=== PATIENT | female | born 1975 | race Caucasian/White ===

== ENCOUNTER 2021-08-20 18:31 | Emergency (ER) | payer SELFPAY ==
[~2021-08-20] VITALS: Ht 165.1 cm; Wt 73.0 kg
[2021-08-20] MEDS ORDERED: ONDANSETRON HCL 4MG/2ML INJ IV STA (19:10)
[2021-08-20] MEDS ORDERED: KETOROLAC 30MG/ML VIAL IV STA (19:10)
[2021-08-20] MEDS ORDERED: ACETAMINOPHEN 325MG TABLET PO STA (19:10)
[2021-08-20] MEDS ORDERED: SODIUM CHLORIDE 0.9% 1,000 ML IV ONE (19:15)
[2021-08-20 19:43] LABS: HCG SCREEN NEGATIVE
[2021-08-20 19:56] LABS: HEMATOCRIT. 39.8 % (36.0-48.0); HEMOGLOBIN. 13.6 g/dL (12.0-16.0); MEAN CORPUSCULAR HEMOGLOBIN 31.6 pg (28.0-32.0); MEAN CORPUSCULAR VOLUME 92.6 fL (81.0-99.0); MEAN PLATELET VOLUME 9.3 fl (7.4-10.4); PLATELET 229 x1000/uL (130-400)
[2021-08-20 20:24] LABS: CHLORIDE 106 mEq/L (98-107)
[2021-08-20 20:33] LABS: PLATELET ESTIMATE NORMAL
[2021-08-20] MEDS ORDERED: AMOX-494 MT (23:27)
[2021-08-20 23:30] VITALS: BP 100/58
== END 2021-08-20 23:41 | disposition home or self-care (01) ==
LOC: ER 18:31
DX: R10.33 Periumbilical pain (principal); K58.9 Irritable bowel syndrome, unspecified; Z20.822 Contact with and (suspected) exposure to COVID-19; R05.9 Cough, unspecified; R50.9 Fever, unspecified
CPT/HCPCS: 36415; 71045; 74176; 80053; 83690; 84703; 85025; 96361; 96374; 96375; 99291; C9803; J1885; J2405; J7030; U0003; U0005